=== PATIENT | female | born 1980 | race African-American/Black ===

== ENCOUNTER 2017-03-05 16:21 | Emergency (ER) | payer MEDICARE, MEDICAID ==
[~2017-03-05] VITALS: Ht 152.4 cm; Wt 49.0 kg
[2017-03-05 16:31] VITALS: BP 123/70
== END 2017-03-05 21:51 | disposition left against medical advice (07) ==
LOC: ER 16:21
DX: H57.8 Other specified disorders of eye and adnexa (principal); Z53.21 Procedure and treatment not carried out due to patient leaving prior to being seen by health care provider

== ENCOUNTER 2018-05-12 13:16 | Emergency (ER) | payer MEDICARE, MEDICAID ==
[~2018-05-12] VITALS: Ht 160 cm; Wt 50.0 kg
[2018-05-12 13:24] VITALS: BP 113/66
== END 2018-05-12 17:50 | disposition left against medical advice (07) ==
LOC: ER 13:16
DX: M54.9 Dorsalgia, unspecified (principal); Z53.21 Procedure and treatment not carried out due to patient leaving prior to being seen by health care provider